=== PATIENT | female | born 1975 | race Caucasian/White ===

== ENCOUNTER → 2023-10-28 16:44 | Outpatient (REF) | payer OTHER, SELFPAY | LOC: HWWDC 16:44 | PROVIDERS: ATTENDING PHYSICIAN Nurse Practitioner | DX: Z12.31 Encounter for screening mammogram for malignant neoplasm of breast (principal) | CPT/HCPCS: 77063; 77067 ==

== ENCOUNTER → 2023-11-19 15:29 | Outpatient (REF) | payer OTHER, SELFPAY | LOC: RAD 15:29 | PROVIDERS: ATTENDING PHYSICIAN Advanced Practice Midwife; FAMILY PHYSICIAN Nurse Practitioner | DX: N93.9 Abnormal uterine and vaginal bleeding, unspecified (principal) | CPT/HCPCS: 76830; 76856 ==

== ENCOUNTER 2024-05-12 07:02 | Day surgery (SDC) | payer OTHER, SELFPAY ==
[2024-04-30 09:15] LABS: % Lymphocytes 28.7 % (20.5-51.1); % Monocytes 6.6 % (1.7-9.3); % Neutrophils 61.5 % (42.2-75.2); Hematocrit 41.7 % (37.0-47.0); Hemoglobin 13.9 g/dL (12.0-16.0); Mean Corp Hgb Conc. 33.3 g/dL (33.0-37.0); Mean Corpuscular Hgb 31.4 pg (27.0-31.0); Mean Corpuscular Volume 94.1 fL (81.0-99.0); Mean Platelet Volume 11.1 fL (7.4-10.4); Platelet Count 233 10^3/uL (130-400); Red Blood Cell Count 4.43 10^6/uL (4.20-5.40); Red Cell Dist. Width 12.1 % (11.5-14.5)
[2024-04-30 09:16] LABS: % Basophils 0.6 % (0-2); % Eosinophils 2.2 % (0-6); % Immature Granulocytes 0.4 % (0-0.5); Absolute Eosinophils 0.1 10^3/uL (0-0.7); Absolute Lymphocytes 1.4 10^3/uL (1.2-3.4); Absolute Monocytes 0.3 10^3/uL (0.1-0.6); Absolute Neutrophils 3.1 10^3/uL (1.4-6.5); Nucleated Red Blood Cells % 0 %
[2024-04-30 09:34] VITALS: BMI 23.6
[2024-04-30 09:34] LABS: Blood Urea Nitrogen 13 mg/dl (7-17); Calcium 9.5 mg/dl (8.4-10.2); Carbon Dioxide 27 mmol/L (22-30); Chloride 104 mmol/L (98-107); Glucose 88 mg/dl (70-99); Potassium 4.7 mmol/L (3.5-5.1); Sodium 141 mmol/L (135-145); eGFR > 60.00
[2024-04-30 10:03] LABS: HCG, Urine Qualitative Screen Negative
[2024-05-12] VITALS (11 sets, daily range): BP systolic 120–144; BP diastolic 76–89; BMI 23.6
[2024-05-12] MEDS: TYLENOL 1000 MG PO (13:13)
[2024-05-12] MEDS: CELEBREX 200 MG PO (13:13)
--- NOTE | 2024-05-12 15:45 | W.PN.UPDATE ---
Update Note
Progress Note Update
CTSP due to noticing moderate bleeding. Patient feels some cramping but says every time she moves she feels something coming out.
vitals: P69 SpO2 97% BP 130/78 R14
Gen: well appearing, lying in bed nad
Pelvic Exam: there is approx 50cc of blood on pad below the patient. On massage a small amount trickling per vagina.
At this time there is more than typical bleeding post procedure but not excessive and patient is hemodynamically stable. I explained to the patient the intra-op findings of a portion of submucosal fibroid, a portion of which I shaved down so
possible this caused some irritation. Will start a course of TXA now to help with her bleeding at home.
[2024-05-12] MEDS: CYKLOKAPRON 1300 MG PO (15:54)
== END 2024-05-12 16:54 | disposition home or self-care (01) ==
LOC: SDS 07:02
PROVIDERS: ATTENDING PHYSICIAN Obstetrics & Gynecology; FAMILY PHYSICIAN Nurse Practitioner
DX: D25.2 Subserosal leiomyoma of uterus (principal); N92.6 Irregular menstruation, unspecified; N94.10 Unspecified dyspareunia; T19.3XXA Foreign body in uterus, initial encounter; T83.39XA Other mechanical complication of intrauterine contraceptive device, initial encounter; Y83.9 Surgical procedure, unspecified as the cause of abnormal reaction of the patient, or of later complication, without mention of misadventure at the time of the procedure
CPT/HCPCS: 58558; 58301; 88305; 36415; 80048; 81025; 85025; 86850; 86900; 86901

== ENCOUNTER → 2024-08-08 11:14 | Outpatient (REF) | payer OTHER, SELFPAY | LOC: RAD 11:14 | PROVIDERS: ATTENDING PHYSICIAN Physician Assistant Medical | DX: R68.89 Other general symptoms and signs (principal); R05.1 Acute cough | CPT/HCPCS: 71046 ==

== ENCOUNTER → 2024-10-23 08:09 | Outpatient (REF) | payer OTHER, SELFPAY ==
[2024-10-23 09:57] LABS: % Basophils 0.5 % (0-2); % Immature Granulocytes 0.3 % (0-0.5); % Lymphocytes 19.9 % (20.5-51.1); % Monocytes 6.2 % (1.7-9.3); % Neutrophils 72.1 % (42.2-75.2); Absolute Eosinophils 0.1 10^3/uL (0-0.7); Absolute Lymphocytes 1.2 10^3/uL (1.2-3.4); Absolute Monocytes 0.4 10^3/uL (0.1-0.6); Absolute Neutrophils 4.5 10^3/uL (1.4-6.5); Hematocrit 38.5 % (37.0-47.0); Hemoglobin 13.1 g/dL (12.0-16.0); Mean Corpuscular Hgb 30.8 pg (27.0-31.0); Mean Corpuscular Volume 90.6 fL (81.0-99.0); Mean Platelet Volume 10.8 fL (7.4-10.4); Nucleated Red Blood Cells % 0 %; Platelet Count 254 10^3/uL (130-400); Red Blood Cell Count 4.25 10^6/uL (4.20-5.40); Red Cell Dist. Width 12.6 % (11.5-14.5); White Blood Cell Count 6.2 10^3/uL (4.8-10.8)
[2024-10-23 10:28] LABS: ALT (SGPT) 12 U/L (0-35); AST (SGOT) 18 U/L (14-36); Albumin 4.3 g/dl (3.5-5.0); Alkaline Phosphatase 49 U/L (38-126); Blood Urea Nitrogen 11 mg/dl (7-17); Calcium 9.1 mg/dl (8.4-10.2); Carbon Dioxide 25 mmol/L (22-30); Chloride 106 mmol/L (98-107); Glucose 102 mg/dl (70-99); HDL Cholesterol 62 mg/dl; LDL Cholesterol, Calculated 95 mg/dl; Potassium 4.2 mmol/L (3.5-5.1); Sodium 140 mmol/L (135-145); Total Bilirubin 0.7 mg/dl (0.2-1.3); Total Cholesterol 166 mg/dl (50-199); Total Protein 6.8 g/dl (6.3-8.2); Triglyceride 49 mg/dl (10-149); Very Low Density Lipoprotein 9 mg/dl (0-30); eGFR > 60.00
[2024-10-23 10:34] LABS: C-Reactive Protein < 5.00 mg/L (0.0-10.00)
[2024-10-23 10:51] LABS: FSH 3.7 mIU/ml; Luteinizing Hormone 0.47 mIU/ml; Vitamin D, 25-OH*** 41.4 ng/mL (30-80)
[2024-10-23 10:53] LABS: Erythrocyte Sed Rate 1 mm/hour (0-20)
[2024-10-23 11:05] LABS: TSH 0.74 uIU/ml (0.47-4.68)
[2024-10-23 13:43] LABS: Vitamin B12 297 pg/ml (239-931)
== END ==
LOC: HWLAB 08:09
PROVIDERS: ATTENDING PHYSICIAN Advanced Practice Midwife; FAMILY PHYSICIAN Nurse Practitioner; REFERRING PHYSICIAN Obstetrics & Gynecology
DX: I48.0 Paroxysmal atrial fibrillation (principal); Z00.00 Encounter for general adult medical examination without abnormal findings; R52 Pain, unspecified; R53.83 Other fatigue; N94.3 Premenstrual tension syndrome
CPT/HCPCS: 36415; 80053; 80061; 82306; 82607; 83001; 83002; 84443; 85025; 85652; 86140; 86618

== ENCOUNTER → 2024-10-28 16:02 | Outpatient (REF) | payer OTHER, SELFPAY | LOC: HWRCS 16:02 | PROVIDERS: ATTENDING PHYSICIAN Nuclear Medicine Nuclear Cardiology; FAMILY PHYSICIAN Nurse Practitioner | DX: I48.0 Paroxysmal atrial fibrillation (principal) | CPT/HCPCS: 93306 ==

== ENCOUNTER → 2024-11-03 08:09 | Outpatient (REF) | payer OTHER, SELFPAY | LOC: HWRAD 08:09 | PROVIDERS: ATTENDING PHYSICIAN Obstetrics & Gynecology; FAMILY PHYSICIAN Nurse Practitioner | DX: D25.0 Submucous leiomyoma of uterus (principal); D25.2 Subserosal leiomyoma of uterus | CPT/HCPCS: 76830; 76856 ==

== ENCOUNTER 2024-12-08 06:27 | Day surgery (SDC) | payer OTHER, SELFPAY ==
[2024-12-02 10:44] VITALS: BMI 22.1
[2024-12-02 11:34] LABS: Hematocrit 39.8 % (37.0-47.0); Hemoglobin 13.5 g/dL (12.0-16.0); Mean Corp Hgb Conc. 33.9 g/dL (33.0-37.0); Mean Corpuscular Hgb 30.8 pg (27.0-31.0); Mean Corpuscular Volume 90.7 fL (81.0-99.0); Platelet Count 259 10^3/uL (130-400); Red Blood Cell Count 4.39 10^6/uL (4.20-5.40); White Blood Cell Count 5.2 10^3/uL (4.8-10.8)
[2024-12-02 12:09] LABS: Blood Urea Nitrogen 7 mg/dl (7-17); Calcium 9.5 mg/dl (8.4-10.2); Carbon Dioxide 24 mmol/L (22-30); Chloride 108 mmol/L (98-107); Estimated Creatinine Clearance 104 ml/min; Glucose 87 mg/dl (70-99); Potassium 4.5 mmol/L (3.5-5.1); Sodium 139 mmol/L (135-145); eGFR > 60.00
[2024-12-02 12:19] LABS: Beta HCG Quantitative < 2.39 mIU/ml
[2024-12-08] VITALS (9 sets, daily range): BP systolic 113–122; BP diastolic 74–82; BMI 22.1
[2024-12-08] MEDS: NEURONTIN 300 MG PO (08:52)
[2024-12-08] MEDS: TYLENOL 1000 MG PO (08:52)
[2024-12-08] MEDS: Pyridium 200 MG PO (08:53)
[2024-12-08] MEDS: NORMOSOL-R/PLASMALYTE-A 1000 IV (08:53)
[2024-12-08] MEDS: HEPARIN 5000 UNITS SC (08:53)
--- NOTE | 2024-12-08 11:58 | W.IMMPOSTOP ---
Surgical Immed Post Op Note
-
Primary Surgeon: Jes Mckeon DO
Smoking Tobacco Packer Hand:JOSE RAFAEL Ureña
Pre-op Diagnosis: Menorrhagia, fibroid uterus
Post-op Diagnosis: same, pelvic adhesion to left ovary.
Procedure Performed: Robotic assisted TLH bilateral salpingectomy, lysis of adhesion
Anesthesia Type: General ET, Dr. Randolph
Specimen / Cultures: Uterus, cervix and bilateral fallopian tubes
Estimated Blood Loss: 10mL
IV fluids (my portion of case) 600mL
Urine output (my portion of case 100mL)
Complications: none
Operative Findings: Enlarged fibroid uterus with approx 5 cm submucosal/intramural fibroid anteriorly. Normal appearing tubes and ovaries bilaterally. Small left paratubal cyst. Adhesion left ovary to pelvic wall 0.5cm thick- lysed.
Counts correct times 2.
Stable to recovery.
[2024-12-08] MEDS: DILAUDID 0.25 MG IV (13:37)
[2024-12-08] MEDS: DILAUDID 0.5 MG IV ×2 (13:51→14:12)
[2024-12-08] MEDS: ROXICODONE 5 MG PO (15:53)
[2024-12-08] MEDS: TYLENOL 650 MG PO (15:53)
== END 2024-12-08 17:30 | disposition home or self-care (01) ==
LOC: SDS 06:27
PROVIDERS: ATTENDING PHYSICIAN Obstetrics & Gynecology; FAMILY PHYSICIAN Nurse Practitioner; OTHER PHYSICIAN Obstetrics & Gynecology
DX: N81.4 Uterovaginal prolapse, unspecified (principal); N93.9 Abnormal uterine and vaginal bleeding, unspecified; D25.0 Submucous leiomyoma of uterus; N92.0 Excessive and frequent menstruation with regular cycle
CPT/HCPCS: 58571; 57260; 88307; 36415; 80048; 84702; 85027; 86850; 86900; 86901; 93005; C1713

== ENCOUNTER → 2025-01-25 07:41 | Outpatient (REF) | payer OTHER, SELFPAY | LOC: HWWDC 07:41 | PROVIDERS: ATTENDING PHYSICIAN Nurse Practitioner; REFERRING PHYSICIAN Obstetrics & Gynecology | DX: Z12.31 Encounter for screening mammogram for malignant neoplasm of breast (principal) | CPT/HCPCS: 77063; 77067 ==

== ENCOUNTER → 2025-02-08 08:34 | Outpatient (REF) | payer OTHER, SELFPAY | LOC: WDC 08:34 | PROVIDERS: ATTENDING PHYSICIAN Nurse Practitioner | DX: R92.8 Other abnormal and inconclusive findings on diagnostic imaging of breast (principal) | CPT/HCPCS: 76642 ==